=== PATIENT | male | born 1980 | race Hispanic/Latino ===

== ENCOUNTER 2017-01-27 19:47 | Emergency (ER) | payer SELFPAY ==
[~2017-01-27] VITALS: Ht 172.7 cm; Wt 97.8 kg
[2017-01-27 21:19] VITALS: BP 128/95
== END 2017-01-27 21:31 | disposition home or self-care (01) ==
LOC: EME 19:47
PROC: 3E0234Z Introduction of Serum, Toxoid and Vaccine into Muscle, Percutaneous Approach (ICD-10-PCS; principal; 2017-01-27)
PROC: 0HQ1XZZ Repair Face Skin, External Approach (ICD-10-PCS; principal; 2017-01-27)
DX: S01.81XA Laceration without foreign body of other part of head, initial encounter (principal); V18.0XXA Pedal cycle driver injured in noncollision transport accident in nontraffic accident, initial encounter; Y93.55 Activity, bike riding
CPT/HCPCS: 99281; 99284